=== PATIENT | male | born 1975 ===

== ENCOUNTER 2017-02-19 13:09 | Emergency (ER) | payer MEDICAID ==
[2017-02-19] MEDS: Sodium Chloride 0.9% 1,000 ML IV SCH (14:33)
[2017-02-19 14:38] LABS: BASO % 0.3 % (0.0-2.0); EOS # 0.1 K/uL (0.0-0.7); EOS % 1.1 % (0.0-4.0); HEMOGLOBIN 14.4 g/dL (12.0-18.0); LYMPH # 1.7 K/uL (1.0-4.3); LYMPH % 24.6 % (20.0-40.0); MEAN CELL VOLUME 84.4 fl (80.0-94.0); MEAN CORPUSCULAR HEMOGLOBIN 27.5 pg (27.0-31.0); MEAN CORPUSCULAR HGB CONC 32.6 g/dL (33.0-37.0); MEAN PLATELET VOLUME 10.5 fl (7.2-11.7); MONO # 0.6 K/uL (0.0-0.8); MONO % 8.2 % (0.0-10.0); NEUT # 4.6 K/uL (1.8-7.0); NEUT % 65.8 % (50.0-75.0); NRBC % 0.1 % (0.0-0.0); RBC 5.24 Mil/uL (4.40-5.90); RED CELL DISTRIBUTION WIDTH 13.3 % (11.5-14.5); WHITE BLOOD COUNT 6.9 K/uL (4.8-10.8)
[2017-02-19 14:42] LABS: PROTHROMBIN TIME 10.9 Seconds (9.8-13.1)
[2017-02-19 14:43] LABS: PARTIAL THROMBOPLASTIN TIME 30.5 Seconds (25.6-37.1)
--- NOTE | 2017-02-19 14:47 | ED PDOC ---
HPI: Chest Pain Time Seen by Provider: 02/19/17 13:43 Chief Complaint (Nursing): Chest Pain Chief Complaint (Provider): Chest Pain History Per: Patient History/Exam Limitations: no limitations Onset/Duration Of Symptoms: Days (x6 months), Intermittent Episodes Current Symptoms Are (Timing): Intermittent Episodes Additional Complaint(s): 5o year old male who presents to the emergency department with a complaint of intermittent left substernal and right midaxillary chest pain associated with mild shortness of breath, dizziness, sweating and bilateral pectoral muscle tightness ongoing for 6 months status post injury causing 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 Patient stated pain worsen this morning on the train to work and was seen in an Urgent Care which performed an EKG revealing an abnormal septal influx and took a baby Aspirin for pain relief earlier today. Of note, patient reported that he has been evaluated for similar symptoms in the past and had a cardiac catheterization with negative findings. PMD: none provided Past Medical History Reviewed: Historical Data, Nursing Documentation, Vital Signs Vital Signs: Last Vital Signs Temp 98.1 F 02/19/17 13:15 Pulse 83 02/19/17 13:15 Resp 16 02/19/17 13:15 BP 123/83 02/19/17 13:15 Pulse Ox 100 02/19/17 15:27 - Medical History PMH: No Chronic Diseases - Surgical History Surgical History: No Surg Hx - Family History Family History: States: No Known Family Hx Denies: Stroke, MS, CAD, Hypertension - Social History Current smoker - smoking cessation education provided: No Alcohol: None Drugs: Denies - Immunization History Hx Tetanus Toxoid Vaccination: No Hx Influenza Vaccination: No Hx Pneumococcal Vaccination: No - Allergies Allergies/Adverse Reactions: Allergies Allergy/AdvReac Type Severity Reaction Status Date / Time No Known Allergies Allergy Verified 02/19/17 13:15 Review of Systems ROS Statement: Except As Marked, All Systems Reviewed And Found Negative Constitutional: Positive for: Sweats Cardiovascular: Positive for: Chest Pain (left substernal and right midaxillary) , Other (bilateral pectoral muscle tightness) Respiratory: Positive for: Shortness of Breath (mild) Neurological: Positive for: Dizziness Physical Exam - Reviewed Nursing Documentation Reviewed: Yes Vital Signs Reviewed: Yes - Physical Exam Appears: Positive for: Non-toxic, No Acute Distress Head Exam: Positive for: ATRAUMATIC, NORMAL INSPECTION, NORMOCEPHALIC Skin: Positive for: Normal Color. Negative for: Rash Eye Exam: Positive for: Normal appearance ENT: Positive for: Normal ENT Inspection Neck: Positive for: Normal, Painless ROM Cardiovascular/Chest: Positive for: Other (reproducible left parasternal and right midclavicular tenderness). Negative for: Chest Non Tender Respiratory: Positive for: Normal Breath Sounds. Negative for: Decreased Breath Sounds, Wheezing, Respiratory Distress Gastrointestinal/Abdominal: Positive for: Normal Exam, Soft. Negative for: Tenderness Extremity: Positive for: Normal ROM (upper/lower). Negative for: Pedal Edema ( bilateral), Calf Tenderness (bilateral) Neurologic/Psych: Positive for: Alert (x3), Oriented, Mood/Affect (anxious). Negative for: Motor/Sensory Deficits - Laboratory Results Result Diagrams: 02/19/17 14:29 02/19/17 14:29 - ECG O2 Sat by Pulse Oximetry: 100 (RA) Pulse Ox Interpretation: Normal Medical Decision Making Medical Decision Making: Initial Impression: Chronic or atypical chest pain Initial Plan: * EKG * CMP * Troponin I * CBC * PTT * PT * CXR * NS 1,000ml IV per 1,000mls/hr * Toradol 30mg IVP ____ Time: 1329 --EKG: NSR at 92 BMP. Normal axis with no acute changes. No suggestion of infarct. Time: 1436 --CXR FINDINGS: LINES AND TUBES: None. LUNG AND PLEURA: The lungs are well inflated and clear. HEART AND MEDIASTINUM: The heart is not enlarged. The hilar and mediastinal contours are within normal limits. SKELETAL STRUCTURES: The bony structures are within normal limits for the patient's age. VISUALIZED UPPER ABDOMEN: Normal. OTHER FINDINGS: None. IMPRESSION: No active pulmonary disease. Scribe Attestation: Documented by Valentine Maynard, acting as a scribe for Chelsea Roach MD. Provider Scribe Attestation: All medical record entries made by the Scribe were at my direction and personally dictated by me. I have reviewed the chart and agree that the record accurately reflects my personal performance of the history, physical exam, medical decision making, and the department course for this patient. I have also personally directed, reviewed, and agree with the discharge instructions and disposition. 4.00p - patient feeling better. history and exam not c/w cardiac etiology, especially duration and type of pain. reassured patient for discharge and followup with his doctor in the [facility]. Disposition - Clinical Impression Clinical Impression: Chest pain, atypical - Patient ED Disposition Is Patient to be Admitted: No Doctor Will See Patient In The: Office Counseled Patient/Family Regarding: Diagnosis, Need For Followup - Disposition Disposition: Routine/Home Disposition Time: 16:02 Condition: STABLE Instructions: Noncardiac Chest Pain (ED) Forms: [employer] (K[place]ovan) - POA Present On Arrival: None
[2017-02-19 14:53] LABS: ALB/GLOB RATIO 1.3 (1.0-2.1); ALBUMIN 4.8 g/dL (3.5-5.0); CALCIUM 9.7 mg/dL (8.4-10.2); GFR AFRICAN-AMERICAN > 60; GFR NON-AFRICAN AMERICAN > 60
[2017-02-19 15:02] LABS: ALT/SGPT 38 U/L (21-72); AST/SGOT 33 U/L (17-59); BLOOD UREA NITROGEN 18 mg/dl (9-20)
[2017-02-19 16:33] VITALS: BP 110/70
[2017-02-19 16:35] VITALS: PULSE 78; RESP 20; TEMP 98; O2SAT 98
--- NOTE | 2017-02-20 08:34 | CARD ---
APPROVED REPORT EKG Measurement Heart [id number] <Conclusion> Normal sinus rhythm Normal ECG
== END 2017-02-19 16:35 | disposition home or self-care (01) ==
LOC: H.ER 13:09
DX: R07.89 Other chest pain (principal); R06.02 Shortness of breath
CPT/HCPCS: 71046; 80053; 84484; 85025; 85610; 85730; 93005; 96361; 96374; 99283; J1885; J7040